=== PATIENT | female | born 1990 | race Caucasian/White ===

== ENCOUNTER 2016-03-19 00:14 | Emergency (ER) | payer BC, OTHER ==
[2016-03-19 00:31] VITALS: BP 146/118; PULSE 126; TEMP 97.5; BMI 23.6
[2016-03-19] MEDS ORDERED: ONDANSETRON 4 MG/2 ML VIAL IVPUSH STA (01:20)
--- NOTE | 2016-03-19 01:20 | PDOC ---
History of Present Illness - General History Source: Patient <Pradeep Leong - Last Filed: 03/19/16 02:35> - General History Source: Patient Exam Limitations: No Limitations - History of Present Illness Initial Comments: 03/19/16 01:22 The patient is a 26 year old female, with no significant past medical history, who presents to the emergency department complaining of 4 hours of non- radiating back pain. The patient reports the pain began while at rest and is localized to the midthoracic region. The patient reports the pain is constant and sharp in nature. The patient denies any associated dysuria, hematuria, frequency, or urgency. The patient reports 1 episode of emesis, and ongoing nausea. The patient reports chills, but denies fever, cough, headache, dizziness , upper or lower extremity weakness, or paresthesias. The patient denies any trauma or LOC. The patient denies any history of kidney stones, diarrhea, or constipation. Allergies: None reported. Past Surgical History: None reported. Social History: Current everyday smoker(2 cigarettes per day). Recreational marijuana use. Denies alcohol use. <Bao Shukla - Last Filed: 03/19/16 02:43> - General Chief Complaint: Back Pain Stated Complaint: BACK PAIN Time Seen by Provider: 03/19/16 00:44 Past History - Past Medical History Asthma: No Cancer: No Cardiac Disorders: No Diabetes: No Kidney Stones: No - Psycho/Social/Smoking Cessation Hx Suicidal Ideation: No Smoking Status: No Smoking History: Current every day smoker Number of Cigarettes Smoked Daily: 2 Information on smoking cessation initiated: No Hx Alcohol Use: No Drug/Substance Use Hx: Yes ([facility]) <Pradeep Leong - Last Filed: 03/19/16 02:35> <Bao Shukla - Last Filed: 03/19/16 02:43> - Past Medical History Allergies/Adverse Reactions: Allergies Allergy/AdvReac Type Severity Reaction Status Date / Time No Known Allergies Allergy Verified 03/19/16 00:25 Home Medications: Ambulatory Orders Levofloxacin [Levaquin -] 500 mg PO DAILY #7 tablet 03/19/16 Metronidazole [Flagyl] 500 mg PO BID #14 tablet 03/19/16 Review of Systems - Review of Systems Able to Perform ROS?: Yes Comments:: 03/19/16 01:23 CONSTITUTIONAL: Absent: fever, no chills, no fatigue EYES: Absent: visual changes ENT: Absent: ear pain, no sore throat CARDIOVASCULAR: Absent: chest pain, no palpitations RESPIRATORY: Absent: cough, no SOB GI: Present: +nausea, +vomiting Absent: abdominal pain, no constipation, no diarrhea GENITOURINARY: Absent: dysuria, no frequency, no hematuria MUSKULOSKELETAL: Present: +midthoracic pain Absent: no arthralgia, no myalgia SKIN: Absent: rash NEURO: Absent: headache <Bao Shukla - Last Filed: 03/19/16 02:43> *Physical Exam - Vital Signs Last Vital Signs Temp Pulse Resp BP Pulse Ox 97.5 F L 126 H 14 146/118 98 03/19/16 00:26 03/19/16 00:26 03/19/16 00:26 03/19/16 00:26 03/19/16 00:26 <Pradeep Leong - Last Filed: 03/19/16 02:35> - Vital Signs Last Vital Signs Temp Pulse Resp BP Pulse Ox 97.5 F L 126 H 14 146/118 98 03/19/16 00:26 03/19/16 00:26 03/19/16 00:26 03/19/16 00:26 03/19/16 00:26 - Physical Exam Comments: 03/19/16 01:23 GENERAL: Well-appearing, well-nourished. Mild-moderate distress. HEENT: Normocephalic, atraumatic. PERRL, EOM intact. NECK: Supple. Full ROM. No JVD. Carotid pulses 2+ and symmetric, without bruits. No thyromegaly. No lymphadenopathy. BACK: Tenderness to palpation at thoracic spine processes from T1-T8. No cervical or lumbar tenderness. CARDIOVASCULAR: Tachycardic. Normal S1, S2. PULMONARY: Clear to auscultation bilaterally. ABDOMEN: Diffuse moderate tenderness to palpation, with some guarding but no rebound. Non -distended. EXTREMITIES: Normal ROM in all four extremities. No gross deformities. No CVA tenderness. SKIN: Warm, dry. No rash NEUROLOGICAL: No focal neurological deficits. <Bao Shukla - Last Filed: 03/19/16 02:43> ED Treatment Course - LABORATORY CBC & Chemistry Diagram: 03/19/16 01:20 03/19/16 01:20 <Pradeep Leong - Last Filed: 03/19/16 02:35> - LABORATORY CBC & Chemistry Diagram: 03/19/16 01:20 03/19/16 01:20 - RADIOLOGY Radiograph Interpretation: 03/19/16 02:42 EXAM: CT abdomen and pelvis INTERPRETED BY: Dr. Moreno REVIEWED BY: Dr. Leong IMPRESSION: Probable diarrheal illness. Severe right renal atrophy and left renal scarring is unchanged <Bao Shukla - Last Filed: 03/19/16 02:43> Medical Decision Making - Medical Decision Making 03/19/16 02:37 Dr. Leong: The scribe's documentation has been prepared under my direction and personally reviewed by me in its entirery. I confirm that the note above accurately reflects all work, treatment, procedures, and medical decision making performed by me. Patient found on CAT scan abdomen pelvis a colitis. Pt given PO Abx and will be discharge. Advised to follow up with her pcp for follow up of her kidney fucntion as pt was found to have an atrophic right kidney. <Pradeep Leong - Last Filed: 03/19/16 02:35> *DC/Admit/Observation/Transfer - Discharge Dispostion Admit: No <Pradeep Leong - Last Filed: 03/19/16 02:35> - Attestations Scribe Attestion: 03/19/16 01:23 Documentation prepared by Bao Shukla, acting as medical transcription editor for Pradeep Leong DO. <Bao Shukla - Last Filed: 03/19/16 02:43> Diagnosis at time of Disposition: Colitis - Discharge Dispostion Disposition: HOME - Prescriptions Prescriptions: Metronidazole [Flagyl] 500 mg PO BID #14 tablet Levofloxacin [Levaquin -] 500 mg PO DAILY #7 tablet - Referrals Referrals: Ad Ferreira MD [Staff Physician] - - Patient Instructions Printed Discharge Instructions: DI for Colitis
[2016-03-19] MEDS ORDERED: SODIUM CHLORIDE 1,000 ML IV STA ×2 (01:21→02:13)
[2016-03-19] MEDS ORDERED: ONDANSETRON 4 MG/2 ML VIAL IVPUSH ONE (01:22)
[2016-03-19] MEDS ORDERED: morphine CARPU-JECT 2 MG/1 ML DISP.SYRIN IVPUSH ONE (01:25)
[2016-03-19] MEDS ORDERED: ONDANSETRON 4 MG/2 ML VIAL ONE (01:37)
[2016-03-19] MEDS ORDERED: morphine CARPU-JECT 2 MG/1 ML DISP.SYRIN ONE (01:37)
[2016-03-19] MEDS ORDERED: morphine CARPU-JECT 4 MG/1 ML DISP.SYRIN ONE (01:37)
[2016-03-19 01:52] LABS: BASOPHIL 0.5 % (0-2.0); EOSINOPHIL 0.3 % (0-4.5); MCH 28.6 pg (25.7-33.7); MCHC 32.7 g/dl (32.0-36.0); MEAN CELL VOLUME 87.6 fl (80-96); MEAN PLT VOLUME 9.2 fl (7.5-11.1); NEUTROPHILS 93.9 % (42.8-82.8); PLATELET COUNT 214 K/MM3 (134-434); RDW 13.2 % (11.6-15.6); WHITE BLOOD COUNT 13.8 K/mm3 (4.0-10.0)
[2016-03-19 02:10] LABS: ALBUMIN 4.2 g/dl (3.4-5.0); ALK PHOS 64 U/L (45-117); ANION GAP 16 (8-16); BILIRUBIN,TOTAL 0.5 mg/dL (0.2-1.0); CALCIUM 9.4 mg/dL (8.5-10.1); CO2 22 mmol/L (21-32); CREATININE 1.1 mg/dL (0.55-1.02); GLUCOSE,RANDOM 107 mg/dL (74-106); SGOT/AST 31 U/L (15-37); SGPT/ALT 32 U/L (12-78); TOT PROT 7.9 g/dl (6.4-8.2)
[2016-03-19] MEDS ORDERED: metroNIDAZOLE 250 MG TABLET PO ONE (02:35)
[2016-03-19] MEDS ORDERED: LEVOFLOXACIN 500 MG TABLET (FP) PO ONE (02:35)
[2016-03-19] MEDS ORDERED: LEVOFLOXACIN 500 MG TABLET (FP) ONE (02:39)
[2016-03-19] MEDS ORDERED: metroNIDAZOLE 250 MG TABLET ONE (02:39)
[2016-03-19] MEDS ORDERED: OXYCODONE/APAP 5/325MG COMBO TABLET PO ONE (02:51)
[2016-03-19] MEDS ORDERED: OXYCODONE/APAP 5/325MG COMBO TABLET ONE (02:58)
== END 2016-03-19 03:05 | disposition home or self-care (01) ==
LOC: JER 00:14
PROC: 3E033NZ Introduction of Analgesics, Hypnotics, Sedatives into Peripheral Vein, Percutaneous Approach (ICD-10-PCS; principal; 2016-03-19)
PROC: 3E033GC Introduction of Other Therapeutic Substance into Peripheral Vein, Percutaneous Approach (ICD-10-PCS; 2016-03-19)
PROC: 3E0337Z Introduction of Electrolytic and Water Balance Substance into Peripheral Vein, Percutaneous Approach (ICD-10-PCS; 2016-03-19)
DX: K52.9 Noninfective gastroenteritis and colitis, unspecified (principal); Z72.0 Tobacco use
CPT/HCPCS: 36415; 74177-TC; 80053; 84703; 85025; 99281-25